=== PATIENT | female | born 2000 | race Two or more races ===

== ENCOUNTER 2024-02-26 21:25 | Emergency (ER) | payer MEDICAID, OTHER ==
[~2024-02-26] VITALS: Ht 154.9 cm; Wt 82.2 kg
[2024-02-26 21:45] VITALS: BP 129/82; PULSE 109; RESP 16; O2SAT 98
== END 2024-02-27 01:36 | disposition left against medical advice (07) ==
LOC: ER 21:25
DX: S00.512A Abrasion of oral cavity, initial encounter (principal); Z53.21 Procedure and treatment not carried out due to patient leaving prior to being seen by health care provider; X58.XXXA Exposure to other specified factors, initial encounter; Y93.89 Activity, other specified; Y92.89 Other specified places as the place of occurrence of the external cause; Y99.8 Other external cause status